=== PATIENT | male | born 1960 | race Caucasian/White ===

== ENCOUNTER → 2017-06-29 | Outpatient (CLI) | payer BC ==
--- NOTE | 2017-06-29 23:30 | CONS ---
CONSULTATION REASON FOR CONSULTATION: Sleep apnea. REFERRING PHYSICIANS: Dr. Jitendra Marcus, also send a copy this note to Dr. Huber Rios. HISTORY OF PRESENT ILLNESS: 56-year-old, male patient with history of paroxysmal atrial fibrillation, coming in for CEM evaluation. He denies having snoring, no witnessed apneas. No sleep fragmentation. No hypersomnia or sleepiness during the day. He goes to bed around 10:00 p.m. and wakes up 6:00 a.m. in the morning. He is thin and carries a BMI of 28.6, and his current [place] score is at 90. No personal or family history of obstructive sleep apnea. He has been having recently some night sweats. Blood work has been negative for any metabolic or endocrinologic problems. PAST SURGERY HISTORY: Paroxysmal atrial fibrillation. PAST SURGICAL HISTORY: Past surgical history includes is negative. ALLERGIES: SULFA AND ELIQUIS AND XARELTO. FAMILY HISTORY: Negative for sleep apnea. He has an adopted child who has narcolepsy. MEDICATION: 1. Rythmol. 2. . SOCIAL HISTORY: The patient is a nonsmoker. No history of alcohol. No history of IV drugs. REVIEW OF SYSTEMS: 12-point review of system was done. Positive findings are mentioned above in the history of present illness. PHYSICAL EXAMINATION: BP is 123/76, pulse 64, respirations 16, temp 98.2, O2 saturation 97% on room air. Weight is 223. Height is 6 feet 2 inches, BMI 28.6, and neck size 15 and a half inches. General appearance appears calm and comfortable. HEENT Mallampati Class 2. No goiter or neck masses lungs. LUNGS: Clear to auscultation. HEART: Sounds are within normal limits. Abdomen soft nontender no organomegaly. No direct tenderness, rebound or guarding. EXTREMITIES: No edema. No cyanosis or clubbing. IMPRESSION: 1. Paroxysmal atrial fibrillation. Current rhythm is sinus. 2. Suspect obstructive sleep apnea. Overall clinical suspicion is quite low. PLAN: 1. Discuss sleep hygiene methods with the patient. 2. Proceed with a home sleep study as a screening tool for the possibility of a sleep breathing disorder. 3. My overall suspicion is low. MMODL / IJN: [id number] /
== END ==
LOC: SLEEP 15:49
PROVIDERS: ATTEND Internal Medicine Critical Care Medicine
DX: I48.0 Paroxysmal atrial fibrillation (principal); Z88.2 Allergy status to sulfonamides; Z88.8 Allergy status to other drugs, medicaments and biological substances; Z79.899 Other long term (current) drug therapy
CPT/HCPCS: 99211